=== PATIENT | male | born 1995 | race Caucasian/White ===

== ENCOUNTER 2016-12-12 21:12 | Emergency (ER) | payer MEDICAID ==
[2016-12-12] MEDS ORDERED: oxyCOD/ACETAMIN 5 MG/325 MG TABLET PO STA (23:14)
[2016-12-12] MEDS ORDERED: oxyCOD/ACETAMIN 5 MG/325 MG TABLET PO ONE (23:16)
== END 2016-12-12 23:26 | disposition home or self-care (01) ==
DX: S30.0XXA Contusion of lower back and pelvis, initial encounter (principal); V00.111A Fall from in-line roller-skates, initial encounter; Y93.51 Activity, roller skating (inline) and skateboarding; F17.200 Nicotine dependence, unspecified, uncomplicated
CPT/HCPCS: 72100; 99283; A9270

== ENCOUNTER 2017-01-03 19:13 | Emergency (ER) | payer MEDICAID ==
[2017-01-03 19:24] VITALS: BP 113/70
== END 2017-01-03 20:31 | disposition left against medical advice (07) ==
LOC: ED 19:13
DX: K92.1 Melena (principal); K59.00 Constipation, unspecified; Z53.21 Procedure and treatment not carried out due to patient leaving prior to being seen by health care provider
CPT/HCPCS: 99281

== ENCOUNTER 2017-03-06 23:19 | Emergency (ER) | payer MEDICAID ==
[2017-03-06 23:41] VITALS: BP 102/62
--- NOTE | 2017-03-07 00:57 | ED Physician Documentation ---
PD HPI BACK PAIN - Stated complaint Stated Complaint: BACK PAIN - Chief complaint Chief Complaint: Back Pain - History obtained from History obtained from: Patient - History of Present Illness Timing - onset: How many weeks ago (weeks-months) Timing - details: Gradual onset, Intermittant Pain level max: 10 Pain level now: 8 Location: Mid, Lower, Right, Left Quality: Similar to prior episodes Associated symptoms: No: Fever, Weakness, Numbness, Incontinent of urine, Unable to urinate, Hematuria, Incontinent of stool Improves with: Rest Worsened by: Movement Similar symptoms before: Work up / diagnostics (lumbar xrays on previous ED visit). No: Follow up Recently seen: Emergency Dept Review of Systems : denies: Incontinent Musculoskeletal: reports: Back pain Neurologic: denies: Focal weakness, Numbness PD PAST MEDICAL HISTORY - Past Medical History Past Medical History: Yes Neuro: None Endocrine/Autoimmune: None HEENT: Other - Past Surgical History Past Surgical History: No - Present Medications Home Medications: Ambulatory Orders Medication Instructions Recorded Confirmed Cyclobenzaprine [Flexeril] 10 mg PO TID PRN #20 tablet 03/07/17 Ibuprofen 800 mg PO Q6HR PRN #20 tablet 03/07/17 - Allergies Allergies/Adverse Reactions: Allergies Allergy/AdvReac Type Severity Reaction Status Date / Time No Known Drug Allergies Allergy Verified 03/06/17 23:41 - Social History Does the pt smoke?: Yes Smoking Status: Current every day smoker Does the pt drink ETOH?: Yes Does the pt have substance abuse?: No Substance Use and Type: Marijuana - Immunizations Immunizations are current?: No Immunizations: TDAP >10years/unknown - POLST Patient has POLST: No PD ED PE NORMAL - Vitals Vital signs reviewed: Yes - General General: Alert and oriented X 3, No acute distress, Well developed/nourished - Neck Neck: No bony TTP - Back Back: No CVA TTP, No spinal TTP - Derm Derm: Normal color, Warm and dry - Extremities Extremities: No edema - Neuro Neuro: Alert and oriented X 3, No motor deficit, No sensory deficit, Other ( bilateral 5/5 plantar/dorsiflexion, bilateral 5/5 test developer strength) Results - Vitals Vitals: Oxygen O2 Source Room air PD MEDICAL DECISION MAKING - ED course Complexity details: reviewed old records, considered differential, d/w patient ED course: patient complains of low back pain that radiates down both legs. Pain is worse with ambulation. Patient says he has had this pain for "a few months". it is very similar to the pain he had in early December when he was a patient of mine in this emergency department. 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 I asked patient why he has not followed up for this back pain, he tells me that he intended to arrange for follow up, but then initiated plans to move off of the [place]. However, the plans to move I have fallen through, but he has not resumed the pursuit of outpatient follow up. Departure - Departure Disposition: Home, Self Care Clinical Impression: Back pain Qualifiers: Back pain location: low back pain Chronicity: chronic Back pain laterality: bilateral Sciatica presence: without sciatica Qualified Code(s): M54.5 - Low back pain Condition: Good Instructions: ED Low Back Pain Injury, ED Hypertension Poss, IBUPROFEN (Adult) , ANTI-INFLAMMATORY, General Follow-Up: [facility] [Provider Group] [facility] [Provider Group] Prescriptions: Ibuprofen 800 mg PO Q6HR PRN #20 tablet PRN Reason: Pain Cyclobenzaprine [Flexeril] 10 mg PO TID PRN #20 tablet PRN Reason: Spasms Comments: You need to follow-up in the outpatient setting with your primary care provider : if you do not have one, contact your insurance company so that one can be assigned. Another option is to contact either the [facility] or [facility] to arrange follow-up. Discharge Date/Time: 03/07/17 01:29
[2017-03-07] MEDS ORDERED: CYCLOBENZAPRINE 10 MG TABLET PO STA (01:06)
[2017-03-07] MEDS ORDERED: KETOROLAC 60 MG/2 ML VIAL IM STA (01:06)
[2017-03-07] MEDS ORDERED: KETOROLAC 60 MG/2 ML VIAL ONE (01:18)
[2017-03-07] MEDS ORDERED: CYCLOBENZAPRINE 10 MG TABLET PO ONE (01:20)
== END 2017-03-07 01:29 | disposition home or self-care (01) ==
LOC: ED 23:19
DX: M54.5 Low back pain (principal); F17.200 Nicotine dependence, unspecified, uncomplicated
CPT/HCPCS: 96372; 99283; A9270

== ENCOUNTER 2018-02-22 12:38 | Emergency (ER) | payer MEDICAID ==
[2018-02-22 12:50] VITALS: BP 132/74
== END 2018-02-22 13:21 | disposition left against medical advice (07) ==
LOC: ED 12:38
DX: Z53.21 Procedure and treatment not carried out due to patient leaving prior to being seen by health care provider (principal)

== ENCOUNTER 2018-08-15 04:16 | Emergency (ER) | payer MEDICAID ==
--- NOTE | 2018-08-15 04:27 | ED Physician Documentation ---
PD HPI CHEST PAIN - Stated complaint Stated Complaint: ELEV BP, CP - Chief complaint Chief Complaint: General - History obtained from History obtained from: Patient - History of Present Illness Timing - onset: Today, Yesterday Timing - duration: Seconds Timing - details: Abrupt onset, Now resolved, Intermittant Pain level max: 4 Pain level now: 0 Quality: Sharp, Pain Location: Left chest Radiation: No: Jaw, Neck, Back, Abdominal, Left upper extremity, Right upper extremity Improved by: Nothing Worsened by: Other (no apparent inciting nor exacerbating factors) Associated symptoms: No: Shortness of air, Diaphoresis, Nausea, Vomiting, Feeling faint / dizzy, General Weakness, Palpitations, Cough Similar symptoms before: Has not had sx before Recently seen: Not recently seen - Additional information Additional information: c/o episodic left chest pain that lasts seconds, no correlation with activity/exertion. had episode last night 9 PM and again at 3 AM. He bought a BP cuff recently and has been measuring his blood pressure several times over past 24 hours. tonight his readings were 140/92 and then 138/86. Review of Systems Constitutional: reports: Reviewed and negative Cardiac: reports: Chest pain / pressure. denies: Palpitations, Pedal edema Respiratory: reports: Reviewed and negative GI: reports: Reviewed and negative PD PAST MEDICAL HISTORY - Past Medical History Past Medical History: Yes Endocrine/Autoimmune: None HEENT: Other - Past Surgical History Past Surgical History: No - Present Medications Home Medications: Ambulatory Orders Medication Instructions Recorded Confirmed Cyclobenzaprine [Flexeril] 10 mg PO TID PRN #20 tablet 03/07/17 Ibuprofen 800 mg PO Q6HR PRN #20 tablet 03/07/17 - Allergies Allergies/Adverse Reactions: Allergies Allergy/AdvReac Type Severity Reaction Status Date / Time No Known Drug Allergies Allergy Verified 08/15/18 04:26 - Social History Does the pt smoke?: No Smoking Status: Former smoker Does the pt drink ETOH?: Yes Does the pt have substance abuse?: No - Immunizations Immunizations are current?: No Immunizations: TDAP >10years/unknown - POLST Patient has POLST: No PD ED PE NORMAL - Vitals Vital signs reviewed: Yes - General General: Alert and oriented X 3, No acute distress, Well developed/nourished - HEENT HEENT: Moist mucous membranes - Cardiac Cardiac: RRR, No murmur, No gallop, No rub, Strong equal pulses - Respiratory Respiratory: No respiratory distress - Abdomen Abdomen: Soft, Non tender - Extremities Extremities: No edema Results - Vitals Vitals: Vital Signs - 24 hr 08/15/18 08/15/18 08/15/18 04:22 04:26 06:09 Temperature 36.8 C Heart Rate 120 H 123 H 100 Respiratory 18 18 17 Rate Blood Pressure 148/92 H 137/85 H 116/61 O2 Saturation 100 100 98 08/15/18 06:34 Temperature Heart Rate 93 Respiratory 17 Rate Blood Pressure 113/63 O2 Saturation 98 Oxygen O2 Source Room air - EKG (time done) No standard instances Rate: Rate (enter#) (116), Tachy Rhythm: Sinus tachycardia [place]: Normal Intervals: Normal [place] QRS: Normal Ischemia: Normal ST segments - Labs Labs: Laboratory Tests 08/15/18 08/15/18 05:05 05:05 D-Dimer < 200.0 L Troponin I < 0.04 - Rads (name of study) chest xray Radiology: Prelim report reviewed, See rad report PD MEDICAL DECISION MAKING - ED course Complexity details: reviewed results, re-evaluated patient, considered differential, d/w patient ED course: tachycardic for most of ED stay with mild hypertension. however, on reevaluation, he is asleep and his pulse is NSR in 80s-90s with blood pressure of 113/64. Results reviewed with patient; I advised him to follow up with his PMD, particularly to discuss his blood pressure. Departure - Departure Disposition: 01 Home, Self Care Clinical Impression: Chest pain Condition: Good Instructions: ED Chest Pain Atypical Unkn Cause, ED Hypertension Poss Follow-Up: [facility] [Provider Group] [facility] [Provider Group] Discharge Date/Time: 08/15/18 06:43
--- NOTE | 2018-08-15 05:14 | XRAY Report ---
Reason: chest pain Procedure Date: 08/15/2018 Accession Number: [id number] / [id number] Procedure: XR - Chest 2 View X-Ray CPT Code: 42718 FULL RESULT: EXAM: CHEST RADIOGRAPHY EXAM DATE: 08/15/2018 05:05 AM. CLINICAL HISTORY: Chest pain. COMPARISON: None. TECHNIQUE: 2 views. FINDINGS: Lungs/Pleura: No focal opacities evident. No pleural effusion. No pneumothorax. Normal volumes. Mediastinum: Heart and mediastinal contours are unremarkable. Other: None. IMPRESSION: Normal 2-view chest radiography. RADIA
[2018-08-15 06:35] VITALS: BP 113/63
== END 2018-08-15 06:43 | disposition home or self-care (01) ==
LOC: ED 04:16
DX: R07.9 Chest pain, unspecified (principal)
CPT/HCPCS: 36415; 71046; 84484; 85379; 93005; 99283

== ENCOUNTER 2018-08-20 23:52 | Emergency (ER) | payer MEDICAID ==
--- NOTE | 2018-08-21 02:10 | ED Physician Documentation ---
PD HPI CHEST PAIN - Stated complaint Stated Complaint: CP - Chief complaint Chief Complaint: Cardiac - History obtained from History obtained from: Patient - History of Present Illness Timing - onset: How many weeks ago Timing - onset during: Light activity (he has pain worsen with moderate to deep breathing, and with left shoulder movement foreward.) Timing - details: Gradual onset, Waxing and waning Quality: Aching, Sharp, Pain Location: Substernal, Left chest Radiation: No: Jaw, Neck Improved by: Rest Worsened by: Inspiration, Movement, Position (lying on left side). No: Palpation Associated symptoms: Shortness of air, Cough. No: Nausea, Vomiting, Feeling faint / dizzy, Palpitations Similar symptoms before: Has not had sx before Recently seen: Not recently seen Review of Systems Constitutional: reports: Fatigue. denies: Fever, Chills, Myalgias Nose: denies: Rhinorrhea / runny nose, Congestion Throat: reports: Dental pain / toothache (left upper tooth broken recently and with some mild gum swelling the past few days.). denies: Sore throat Cardiac: denies: Chest pain / pressure, Palpitations Respiratory: reports: Dyspnea, Cough. denies: Wheezing GI: denies: Abdominal Pain, Nausea, Vomiting PD PAST MEDICAL HISTORY - Past Medical History Past Medical History: Yes Endocrine/Autoimmune: None HEENT: Other - Past Surgical History Past Surgical History: No - Present Medications Home Medications: Ambulatory Orders Medication Instructions Recorded Confirmed Cephalexin [Keflex] 500 mg PO TID #20 capsule 08/21/18 Chlorhexidine Gluconate [Peridex] 15 ml MM BID #118 ml 08/21/18 LORazepam [Ativan] 1 mg PO BID PRN #10 tablet 08/21/18 Naproxen 500 mg PO BID #20 tablet 08/21/18 Tramadol HCl 50 mg PO Q6H PRN #15 tablet 08/21/18 - Allergies Allergies/Adverse Reactions: Allergies Allergy/AdvReac Type Severity Reaction Status Date / Time No Known Drug Allergies Allergy Verified 08/21/18 00:00 - Social History Does the pt smoke?: No Smoking Status: Never smoker Does the pt drink ETOH?: Yes Does the pt have substance abuse?: No - Immunizations Immunizations are current?: No Immunizations: TDAP >10years/unknown - POLST Patient has POLST: No PD ED PE NORMAL - Vitals Vital signs reviewed: Yes - General General: Alert and oriented X 3, No acute distress (but does seem somewhat anxious. Pleasant and conversant though. ), Well developed/nourished - HEENT HEENT: Moist mucous membranes, Pharynx benign. No: Dentition benign (left upper tooth with mild swelling/tender of gum. No abscess felt. ) - Neck Neck: Supple, no meningeal sign, No adenopathy - Cardiac Cardiac: RRR, No murmur, No rub - Respiratory Respiratory: Clear bilaterally - Abdomen Abdomen: Soft, Non tender - Derm Derm: Normal color, Warm and dry - Extremities Extremities: No deformity, Normal ROM s pain, No edema, No calf tenderness / cord - Neuro Neuro: Alert and oriented X 3, No motor deficit, Normal speech Results - Vitals Vitals: Vital Signs - 24 hr 08/20/18 08/21/18 08/21/18 23:58 01:50 02:30 Temperature 36.7 C Heart Rate 115 H 98 94 Respiratory 18 14 18 Rate Blood Pressure 132/79 H 116/64 100/67 O2 Saturation 100 100 98 Oxygen O2 Source Room air - EKG (time done) 23:58 Rate: Rate (enter#) (111) Rhythm: Sinus tachycardia [place]: Normal Intervals: Normal [place] QRS: Normal Ischemia: Normal ST segments. No: ST elevation c/w ischemia, ST depression Compare to prior EKG: Old EKG unavailable PD MEDICAL DECISION MAKING - ED course Complexity details: considered differential (Seems to may be viral illness or just a inflammatory condition with pleuritic pain in pain with movement of shoulder. It does not sound heart like. He has not had any cough. The lungs are clear. I would defer imaging at this time and just do treatment.), d/w patient Departure - Departure Disposition: 01 Home, Self Care Clinical Impression: Tachycardia, Pain, dental Chest pain Qualifiers: Chest pain type: chest pain on breathing Qualified Code(s): R07.1 - Chest pain on breathing Condition: Stable Record reviewed to determine appropriate education?: Yes Instructions: ED Chest Pain Pleurisy Prescriptions: Cephalexin [Keflex] 500 mg PO TID #20 capsule Chlorhexidine Gluconate [Peridex] 15 ml MM BID #118 ml LORazepam [Ativan] 1 mg PO BID PRN #10 tablet PRN Reason: Anxiety Naproxen 500 mg PO BID #20 tablet Tramadol HCl 50 mg PO Q6H PRN #15 tablet PRN Reason: Pain Comments: For the chest pain, I think this sounds like some inflammation around the lung and not really heart pain. I would have you take some anti-inflammatory naproxen twice daily for the next 7-10 days. Add Tylenol or tramadol if needed for pains. This pain could be triggering some anxiety and you can use Ativan twice daily if needed for feeling of anxiety. Recheck if not improving over the next several days to a week. For your dental pain, use the cephalexin antibiotic as directed and chlorhexidine mouth rinse twice daily. Follow-up with a dentist at soonest appointment. Discharge Date/Time: 08/21/18 03:02
[2018-08-21] MEDS ORDERED: cephALEXin 250 MG CAPSULE PO STA (02:25)
[2018-08-21] MEDS ORDERED: LORazepam 1 MG TABLET PO STA (02:25)
[2018-08-21] MEDS ORDERED: DEXAMETHASONE 10 MG/ML VIAL PO STA (02:25)
[2018-08-21] MEDS ORDERED: NAPROXEN 250 MG TABLET PO STA (02:25)
[2018-08-21] MEDS ORDERED: traMADol 50 MG TABLET PO STA (02:26)
[2018-08-21] MEDS ORDERED: CHERRY SYRUP 10 ML UDC PO ONE (02:50)
[2018-08-21 02:57] VITALS: BP 100/67
== END 2018-08-21 03:02 | disposition home or self-care (01) ==
LOC: ED 23:52
DX: R07.1 Chest pain on breathing (principal); R00.0 Tachycardia, unspecified; K08.89 Other specified disorders of teeth and supporting structures
CPT/HCPCS: 93005; 99283; 99284; A9270; J8499

== ENCOUNTER 2018-09-04 02:25 | Emergency (ER) | payer MEDICAID ==
[2018-09-04] MEDS ORDERED: SODIUM CHLORIDE 0.9% 1,000 ML IV STA (02:35)
[2018-09-04] MEDS ORDERED: ACETAMINOPHEN 500 MG TABLET PO STA (02:36)
[2018-09-04 02:52] VITALS: BP 116/76
--- NOTE | 2018-09-04 02:52 | ED Physician Documentation ---
PD HPI CHEST PAIN - Stated complaint Stated Complaint: CP - History obtained from History obtained from: Patient - History of Present Illness Timing - onset: How many weeks ago (4) Timing - onset during: Rest Timing - duration: Minutes (3) Timing - details: Gradual onset Pain level max: 3 Pain level now: 3 Severity Comments: mild Quality: Sharp Location: Left chest Radiation: No: Jaw, Neck, Back Improved by: Rest Worsened by: Movement Associated symptoms: No: Shortness of air, Diaphoresis, Nausea Review of Systems Ten Systems: 10 systems reviewed and negative Constitutional: reports: Reviewed and negative Eyes: reports: Reviewed and negative Ears: reports: Reviewed and negative Nose: reports: Reviewed and negative Throat: reports: Reviewed and negative Cardiac: reports: Reviewed and negative Respiratory: reports: Reviewed and negative GI: reports: Reviewed and negative : reports: Reviewed and negative Skin: reports: Reviewed and negative Musculoskeletal: reports: Reviewed and negative Neurologic: reports: Reviewed and negative Psychiatric: reports: Reviewed and negative Endocrine: reports: Reviewed and negative Immunocompromised: reports: Reviewed and negative PD PAST MEDICAL HISTORY - Past Medical History Endocrine/Autoimmune: None HEENT: Other Other Past Medical History: Reviewed and not pertinent - Past Surgical History Past Surgical History: No Other past surgical history: Reviewed and not pertinent - Present Medications Home Medications: Ambulatory Orders Medication Instructions Recorded Confirmed Cephalexin [Keflex] 500 mg PO TID #20 capsule 08/21/18 Chlorhexidine Gluconate [Peridex] 15 ml MM BID #118 ml 08/21/18 LORazepam [Ativan] 1 mg PO BID PRN #10 tablet 08/21/18 Naproxen 500 mg PO BID #20 tablet 08/21/18 Tramadol HCl 50 mg PO Q6H PRN #15 tablet 08/21/18 - Allergies Allergies/Adverse Reactions: Allergies Allergy/AdvReac Type Severity Reaction Status Date / Time No Known Drug Allergies Allergy Verified 08/21/18 00:00 - Social History Does the pt smoke?: No Smoking Status: Never smoker Does the pt drink ETOH?: Yes Does the pt have substance abuse?: No - Family History Family history: reports: Other (Reviewed and not pertinent) - Immunizations Immunizations are current?: No Immunizations: TDAP >10years/unknown - POLST Patient has POLST: No PD ED PE NORMAL - Vitals Vital signs reviewed: Yes - General General: Alert and oriented X 3, No acute distress - HEENT HEENT: PERRL - Neck Neck: Supple, no meningeal sign - Cardiac Cardiac: RRR, No murmur - Respiratory Respiratory: Clear bilaterally - Abdomen Abdomen: Normal bowel sounds, Soft, Non tender, Non distended - Derm Derm: Warm and dry - Extremities Extremities: No deformity - Neuro Neuro: Alert and oriented X 3 - Psych Psych: Normal mood, Normal affect Results - Vitals Vitals: Oxygen O2 Source Room air PD MEDICAL DECISION MAKING - ED course Complexity details: reviewed old records, reviewed results, re-evaluated patient, considered differential, d/w patient, d/w family ED course: 22-year-old male presents with chest pain. Due to tachycardia d-dimer and labs were ordered. However patient left without completing treatment. Departure - Departure Disposition: ED Transfer to [facility] Clinical Impression: Chest pain Qualifiers: Chest pain type: other chest pain Qualified Code(s): R07.89 - Other chest pain; R07.8 - Other chest pain
== END 2018-09-04 02:53 | disposition left against medical advice (07) ==
LOC: ED 02:25
DX: R07.9 Chest pain, unspecified (principal); R00.0 Tachycardia, unspecified; Z53.20 Procedure and treatment not carried out because of patient's decision for unspecified reasons
CPT/HCPCS: 80053; 83690; 84484; 85025; 85379; 93005; 99283

== ENCOUNTER 2019-06-04 04:21 | Emergency (ER) | payer MEDICAID ==
[2019-06-04 04:30] VITALS: BP 124/70
--- NOTE | 2019-06-04 05:09 | ED Physician Documentation ---
PD HPI HEENT - Stated complaint Stated Complaint: MOUTH PX - Chief complaint Chief Complaint: Heent - History obtained from History obtained from: Patient - History of Present Illness Timing - details: Gradual onset Pain level now: 6 Location: Tooth Improves: Nothing Worsens: Other (chewing/eating) Associated symptoms: No: Fever Recently seen: Not recently seen - Additional information Additional information: c/o 5 days of dental pain, right lower molar. Presents to ED with friend who is also registered as ED patient. Patient tells me "I think I just need an antibiotic". Review of Systems Constitutional: denies: Fever Throat: reports: Dental pain / toothache PD PAST MEDICAL HISTORY - Past Medical History Past Medical History: Yes Cardiovascular: None Respiratory: None Neuro: None Endocrine/Autoimmune: None GI: None : None HEENT: Other Psych: None Musculoskeletal: None Derm: None - Past Surgical History Past Surgical History: No - Present Medications Home Medications: Ambulatory Orders Medication Instructions Recorded Confirmed Cephalexin [Keflex] 500 mg PO TID #20 capsule 08/21/18 Chlorhexidine Gluconate [Peridex] 15 ml MM BID #118 ml 08/21/18 LORazepam [Ativan] 1 mg PO BID PRN #10 tablet 08/21/18 Naproxen 500 mg PO BID #20 tablet 08/21/18 Tramadol HCl 50 mg PO Q6H PRN #15 tablet 08/21/18 Amoxicillin 500 mg PO BID #10 capsule 06/04/19 - Allergies Allergies/Adverse Reactions: Allergies Allergy/AdvReac Type Severity Reaction Status Date / Time No Known Drug Allergies Allergy Verified 06/04/19 04:30 - Social History Does the pt smoke?: No Smoking Status: Never smoker Does the pt drink ETOH?: Yes Does the pt have substance abuse?: No - Immunizations Immunizations are current?: No Immunizations: TDAP >10years/unknown - POLST Patient has POLST: No PD ED PE NORMAL - Vitals Vital signs reviewed: Yes - General General: Alert and oriented X 3, No acute distress PD ED PE EXPANDED - General General: Disheveled, poorly kept - HEENT HEENT: Dental decay (overall poor dentition, with extensive decay and attrition. tenderness to percussion of right mandibular first molar, which has worn down to level of gingiva. No erythema or swelling of surrounding gingiva/mucosa) Results - Vitals Vitals: Oxygen O2 Source Room air PD MEDICAL DECISION MAKING - ED course Complexity details: reviewed old records, considered differential, d/w patient ED course: patient c/o dental pain, requests antibiotic for possible dental infection. He was comfortable with rx for amoxicillin and did not request anything for pain. Departure - Departure Disposition: 01 Home, Self Care Clinical Impression: Pain, dental Condition: Good Instructions: ED Tooth Pain Prescriptions: Amoxicillin 500 mg PO BID #10 capsule Comments: Follow up with your dentist, next available appointment Discharge Date/Time: 06/04/19 05:30
[2019-06-04] MEDS ORDERED: AMOXICILLIN 250 MG CAPSULE PO STA (05:23)
== END 2019-06-04 05:30 | disposition home or self-care (01) ==
LOC: ED 04:21
DX: K08.89 Other specified disorders of teeth and supporting structures (principal); K02.9 Dental caries, unspecified
CPT/HCPCS: 99282; 99283; A9270

== ENCOUNTER 2020-03-09 12:45 | Emergency (ER) | payer MEDICAID ==
[2020-03-09] MEDS ORDERED: LIDOCAINE 1% 2 ML VIAL MC ONE (14:23)
[2020-03-09] MEDS ORDERED: cefTRIAXone 1 GM VIAL IM STA (14:23)
[2020-03-09] MEDS ORDERED: IBUPROFEN 600 MG TABLET PO STA (14:23)
[2020-03-09] MEDS ORDERED: HYDROmorphone 1 MG/ML CARPUJECT IVP STA (14:23)
--- NOTE | 2020-03-09 14:26 | ED Physician Documentation ---
History of Present Illness - Stated complaint Stated Complaint: TOOTH PX - Chief complaint Chief Complaint: Heent - History obtained from History obtained from: Patient - History of Present Illness Timing: Prior to arrival - Additonal information Additional information: 24-year-old male presents to the emergency department for evaluation of right upper mouth pain and facial swelling. He reports that he has 2 teeth that are decayed and missing and he has been trying to get dental implants but it is cost prohibitive. This a.m. he woke up with acute pain and had swelling of the right lower cheek near the nasolabial fold. He denies fevers or trismus. He is speaking and talking normally. normal swallow. Review of Systems Constitutional: reports: Reviewed and negative Eyes: reports: Reviewed and negative Ears: reports: Reviewed and negative Nose: reports: Reviewed and negative Throat: reports: Dental pain / toothache. denies: Sore throat, Swollen tonsils, Swallowed foreign body Cardiac: reports: Reviewed and negative Respiratory: reports: Reviewed and negative : reports: Reviewed and negative Skin: reports: Reviewed and negative Musculoskeletal: reports: Reviewed and negative Neurologic: reports: Reviewed and negative PD PAST MEDICAL HISTORY - Past Medical History Cardiovascular: None Respiratory: None Neuro: None Endocrine/Autoimmune: None GI: None : None HEENT: Other Psych: None Musculoskeletal: None Derm: None - Past Surgical History Past Surgical History: No - Present Medications Home Medications: Ambulatory Orders Medication Instructions Recorded Confirmed Cephalexin [Keflex] 500 mg PO TID #20 capsule 08/21/18 Chlorhexidine Gluconate [Peridex] 15 ml MM BID #118 ml 08/21/18 LORazepam [Ativan] 1 mg PO BID PRN #10 tablet 08/21/18 Naproxen 500 mg PO BID #20 tablet 08/21/18 Tramadol HCl 50 mg PO Q6H PRN #15 tablet 08/21/18 Amoxicillin 500 mg PO BID #10 capsule 06/04/19 Amox/Clav 875/125 [Augmentin] 1 each PO Q12H #20 tablet 03/09/20 Chlorhexidine Gluconate 15 ml MM BID #473 ml 03/09/20 Ibuprofen [Motrin] 600 mg PO Q6H PRN #30 tab 03/09/20 - Allergies Allergies/Adverse Reactions: Allergies Allergy/AdvReac Type Severity Reaction Status Date / Time No Known Drug Allergies Allergy Verified 03/09/20 12:47 - Social History Does the pt smoke?: No Smoking Status: Never smoker Does the pt drink ETOH?: Yes Does the pt have substance abuse?: No - Immunizations Immunizations are current?: No Immunizations: TDAP >10years/unknown - POLST Patient has POLST: No PD ED PE EXPANDED - General General: Alert, No acute distress - HEENT HEENT: Atraumatic, Other (Swelling of the right lower cheek with some loss of the nasolabial fold. Patient able to open mouth fully. Tooth #7 is decayed to the gumline with some swelling and erythema but no drainage. Posterior oropharynx mildly erythematous without exudate. Full range of motion of neck. Normal phonation) - Eyes Eyes: PERRL, Normal accommodation - Neck Neck: Supple w/out meningeal sx. No: Stiff neck, Brudzinki's, Limited ROM - Cardiac Cardiac: Regular Rate, Radial strong equal, Cap refill < 2 sec. No: Murmur Present - Respiratory Respiratory: Clear to ausultation herrera. No: Distress, Labored Results - Vitals Vitals: Vital Signs - 24 hr 03/09/20 12:47 Temperature 36.7 C Heart Rate 96 Respiratory 18 Rate Blood Pressure 115/79 O2 Saturation 97 Oxygen O2 Source Room air PD MEDICAL DECISION MAKING - ED course Complexity details: considered differential, d/w patient ED course: 24-year-old male presents to the emergency department with acute tooth #7 pain and mild facial swelling that began this a.m. He has no red flags that include trismus, dysphonia, or inability to tolerate oral secretions or fevers. Patient was given 1 g of ceftriaxone here in the emergency department and will be prescribed Augmentin on discharge. I will also recommend warm salt water rinses versus the use of chlorhexidine. We did discuss that if he has increased facial swelling develops any trismus he is to present again to the emergency department. Departure - Departure Disposition: 01 Home, Self Care Clinical Impression: Dental abscess, Swelling of right side of face Condition: Stable Record reviewed to determine appropriate education?: Yes Instructions: ED Abscess Dental Ch Prescriptions: Amox/Clav 875/125 [Augmentin] 1 each PO Q12H #20 tablet Chlorhexidine Gluconate 15 ml MM BID #473 ml Ibuprofen [Motrin] 600 mg PO Q6H PRN #30 tab PRN Reason: Pain Comments: Damon, I want you to fill the prescription for the antibiotics and begin taking this evening. I think it is important that you follow-up with a dentist as soon as possible within the next few days. If despite the antibiotics you have increased facial swelling, cannot move your neck or have any fevers or worsening symptoms please return to the emergency department for a second look. I do recommend that you rinse your mouth with warm salt water 3 times a day. I have also prescribed chlorhexidine mouth rinse however often insurance does not cover this. Please take ibuprofen as prescribed for pain
[2020-03-09] MEDS ORDERED: HYDROmorphone 1 MG/ML CARPUJECT IM STA (14:27)
[2020-03-09 15:35] VITALS: BP 126/79
== END 2020-03-09 15:34 | disposition home or self-care (01) ==
LOC: ED 12:45
DX: K04.7 Periapical abscess without sinus (principal)
CPT/HCPCS: 96372; 99283; 99284; A9270; J1170

== ENCOUNTER 2020-11-26 01:45 | Emergency (ER) | payer MEDICAID ==
[2020-11-26] MEDS ORDERED: AMOX/CLAV 875 MG/125 MG TABLET PO STA (02:25)
--- NOTE | 2020-11-26 02:28 | ED Physician Documentation ---
PD HPI CHEST PAIN - Stated complaint Stated Complaint: CHEST PX, SWOLLEN FACE, MOUTH PX - Chief complaint Chief Complaint: Cardiac - History obtained from History obtained from: Patient - Additional information Additional information: 25-year-old man, previously healthy presents with right frontal avulsed tooth and infection. He states that he has had multiple tooth infections in the past. Appears hyper-alert, however he states he only smoked marijuana tonight. Significant other at the bedside with an apparent significant difference in age. 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 He attributes the prior CP to his tooth. Review of Systems Constitutional: denies: Fever, Chills Throat: reports: Dental pain / toothache Skin: denies: Lesions PD PAST MEDICAL HISTORY - Past Medical History Past Medical History: Yes Cardiovascular: None Respiratory: None Neuro: None Endocrine/Autoimmune: None GI: None : None HEENT: Other Psych: None Musculoskeletal: None Derm: None Other Past Medical History: poor dentition - Past Surgical History Past Surgical History: No - Present Medications Home Medications: Ambulatory Orders Medication Instructions Recorded Confirmed Amox/Clav 875/125 [Augmentin 1 tablet PO Q12H 7 Days #14 tablet 11/26/20 875/125 Tab] - Allergies Allergies/Adverse Reactions: Allergies Allergy/AdvReac Type Severity Reaction Status Date / Time No Known Drug Allergies Allergy Verified 11/26/20 01:56 - Social History Does the pt smoke?: No Smoking Status: Never smoker Does the pt drink ETOH?: Yes Does the pt have substance abuse?: No - Immunizations Immunizations are current?: No Immunizations: TDAP >10years/unknown - POLST Patient has POLST: No PD ED PE NORMAL - Vitals Vital signs reviewed: Yes - General General: Alert and oriented X 3, No acute distress, Other (thin appearing, highly alert) - HEENT HEENT: Atraumatic, PERRL, EOMI, Other (Extremely poor dentition with multiple missing teeth. palpable swelling superior to tooth 6 and 7 with avulsion of tooth 7) - Neck Neck: Supple, no meningeal sign - Cardiac Cardiac: RRR - Respiratory Respiratory: No respiratory distress, Clear bilaterally Results - Vitals Vitals: Vital Signs - 24 hr 11/26/20 11/26/20 01:53 02:06 Temperature 36.4 C L Heart Rate 112 H 110 H Respiratory 16 10 L Rate Blood Pressure 123/74 107/69 O2 Saturation 99 98 Oxygen O2 Source Room air - EKG (time done) 0157 Rate: Rate (enter#) (108) Rhythm: Sinus tachycardia [place]: Normal Intervals: Normal ME QRS: Normal Ischemia: Normal ST segments PD MEDICAL DECISION MAKING - ED course ED course: 25-year-old man presents with complaint of dental pain and request for antibiotics. He does have very poor dentition and a burgeoning right upper tooth infection, therefore I recommended for him to take antibiotics as prescribed and follow-up with dental tomorrow morning. Return precautions given. Departure - Departure Disposition: Home, Self Care Clinical Impression: Chest pain, Dental infection Condition: Good Instructions: ED Abscess Dental Follow-Up: LUIS ALFRED [Physician No Access] - Prescriptions: Amox/Clav 875/125 [Augmentin 875/125 Tab] 1 tablet PO Q12H 7 Days #14 tablet Comments: You are seen in the emergency department for dental infection. Make sure that you follow-up with a dentist tomorrow morning. Return to the emergency department if you have any new or worsening symptoms or other concerns.
[2020-11-26 03:01] VITALS: BP 104/70
== END 2020-11-26 03:01 | disposition home or self-care (01) ==
LOC: ED 01:45
DX: K04.7 Periapical abscess without sinus (principal); S03.2XXA Dislocation of tooth, initial encounter; X58.XXXA Exposure to other specified factors, initial encounter; R07.9 Chest pain, unspecified; R00.0 Tachycardia, unspecified
CPT/HCPCS: 93005; 99283; 99284; A9270

== ENCOUNTER 2023-11-26 08:33 | Emergency (ER) | payer MEDICAID ==
--- NOTE | 2023-11-26 09:12 | ED Physician Documentation ---
History of Present Illness - Stated complaint Stated Complaint: GI - Chief complaint Chief Complaint: Abd Pain - History obtained from History obtained from: Patient - History of Present Illness Timing: Today Pain level max: 5 Pain level now: 5 - Additonal information Additional information: 28-year-old male states that he was constipated and was straining to have a bowel movement when he felt something "pop out" of his rectum. He states that he pushed it back in but it is now painful. Has not had similar symptoms previously. He states he has had issues with constipation when he was abusing opiates, but has been clean for 6 months. Nothing makes it better or worse. No fevers. No chills. No rectal bleeding. Review of Systems Constitutional: denies: Fever, Chills GI: denies: Abdominal Pain, Nausea, Vomiting, Diarrhea PD PAST MEDICAL HISTORY - Past Medical History Past Medical History: No Cardiovascular: None Respiratory: None Neuro: None Endocrine/Autoimmune: None GI: None : None HEENT: Other Psych: None Musculoskeletal: None Derm: None - Past Surgical History Past Surgical History: No - Present Medications Home Medications: Ambulatory Orders Medication Instructions Recorded Confirmed Hydrocortisone Supp [Anusol-Hc] 25 mg [place] BID PRN #14 supp 11/26/23 polyethylene glycoL 3350(BULK) 17 gm PO DAILY PRN #1 each 11/26/23 [Miralax] - Allergies Allergies/Adverse Reactions: Allergies Allergy/AdvReac Type Severity Reaction Status Date / Time No Known Drug Allergies Allergy Verified 11/26/23 08:44 - Social History Does the pt smoke?: No Smoking Status: Never smoker Does the pt drink ETOH?: Yes Does the pt have substance abuse?: No - Immunizations Immunizations are current?: No Immunizations: TDAP >10years/unknown - POLST Patient has POLST: No PD ED PE NORMAL - Vitals Vital signs reviewed: Yes - General General: Alert and oriented X 3, No acute distress - Rectal Rectal: Other (28-year-old male with a hemorrhoid, appears inflamed but not thrombosed, located on the right side of the anus at approximately the 3 o'clock position.) - Derm Derm: Warm and dry - Neuro Neuro: Alert and oriented X 3 Results - Vitals Vitals: Vital Signs - 24 hr 11/26/23 11/26/23 08:41 09:20 Temperature 36.4 C L Heart Rate 103 H 98 Respiratory 20 14 Rate Blood Pressure 119/80 124/82 H O2 Saturation 97 100 Oxygen O2 Source Room air PD Medical Decision Making - ED course Complexity details: considered differential, d/w patient ED course: Patient with an inflamed hemorrhoid. Will place on hydrocortisone suppositories as well as sitz bath's. Will place on MiraLAX for constipation. Abdomen is soft, nontender nondistended. There is no rectal prolapse. The hemorrhoid is not currently thrombosed. We will have him follow-up with his PCP for further care. Patient counseled regarding signs and symptoms for which I believe and urgent re-evaluation would be necessary. Patient with good understanding of and agreement to plan and is comfortable going home at this time This document was made in part using voice recognition software. While efforts are made to proofread this document, sound alike and grammatical errors may occur. Departure - Departure Disposition: 01 Home, Self Care Clinical Impression: Hemorrhoid Qualifiers: Hemorrhoid type: unspecified Qualified Code(s): K64.9 - Unspecified hemorrhoids Condition: Good Instructions: Sitz Bath, ED Hemorrhoids Follow-Up: your,doctor in 1 week [Other] Prescriptions: Hydrocortisone Supp [Anusol-Hc] 25 mg [place] BID PRN #14 supp PRN Reason: hemorrhoids polyethylene glycoL 3350(BULK) [Miralax] 17 gm PO DAILY PRN #1 each PRN Reason: Constipation Comments: Your prescriptions were sent to [facility] in [place]. Use the medications as prescribed. Please follow-up with your doctor for further care. They can discuss removal of the hemorrhoid with general surgery if needed. You can try sitz bath at home as well. Please avoid constipation is much as possible, prescribed a laxative for you. Make sure you are drinking plenty of water. Return if you worsen Forms: PCP List, Activity restrictions Discharge Date/Time: 11/26/23 09:20
[2023-11-26 09:29] VITALS: BP 124/82; O2SAT 100
== END 2023-11-26 09:20 | disposition home or self-care (01) ==
LOC: ED 08:33
DX: K64.9 Unspecified hemorrhoids (principal)
CPT/HCPCS: 99282; 99283